=== PATIENT | male | born 1985 | race Caucasian/White ===

== ENCOUNTER 2022-05-02 03:45 | Inpatient (IN) | payer BC, SELFPAY ==
[2022-05-02] MEDS ORDERED: Cefepime 2 GM VIAL ONE (04:29)
[2022-05-02] MEDS ORDERED: VANCOMYCIN 2 GRAM/500 ML BAG 2 GM in Premix Bag 1 BAG IVPB SCH (04:30)
[2022-05-02 04:55] LABS: Hemoglobin 14.5 g/dL (14.0-18.0); Mean Corpuscular HGB CONC 34.1 g/dL (32.0-36.0); Mean Corpuscular Hemoglobin 30.5 pg (27.0-31.0); Mean Corpuscular Volume 89.4 fl (78.0-98.0); Mean Platelet Volume 8.3 fL (7.4-10.4); Platelet Count 370 10x3/uL (130-400); RBC Distribution Width 12.4 % (11.5-14.5); Red Blood Cell (RBC) Count 4.77 mill/uL (4.70-6.10); White Blood Cell (WBC) Count 20.6 10x3/uL (4.8-10.8)
[2022-05-02 05:12] LABS: ALT (SGPT) 10 U/L (8-55); AST (SGOT) 10 U/L (5-34); Alkaline Phosphatase 135 U/L (40-110); Anion Gap 21 mmol/L (10-20); BUN (Urea Nitrogen) 11 mg/dL (8.9-20.6); Bilirubin, Total 0.9 mg/dL (0.2-1.2); Calc. Creatinine Clearance 0 mL/min (70-130); Carbon Dioxide 10 mmol/L (22-29); Chloride 98 mmol/L (98-107); Estimated GFR 111; Globulin 4.1 g/dL (2.4-3.5); Potassium 5.1 mmol/L (3.5-5.1); Protein, Total 7.1 g/dL (6.0-8.3); Sodium 124 mmol/L (136-145)
[2022-05-02] MEDS ORDERED: Boostrix 0.5 ML (Tdap) VIAL (>/=7 yrs of age) ONE (05:15)
[2022-05-02 05:18] LABS: Glucose 405 mg/dL (70-105)
[2022-05-02 05:19] LABS: Band 10 % (5-11); Lymphocytes 4 % (21-51); MDiff Complete? YES; Monocytes 6 % (0-10); Neutrophil 79 % (42-75); Reactive Lymphocytes 1 % (0-10)
[2022-05-02 05:40] LABS: SARS-CoV-2 NAA Rapid Test Not Detected (NotDetected)
[2022-05-02 05:55] LABS: Base Excess -16.5 mEq/L (-2.0 to +3.0); Calcium, Ionized (venous) 1.16 mmol/L (1.16-1.32); Chloride (VBG) 100 mmol/L (98-106); Potassium (VBG) 4.67 mmol/L (3.70-5.30); Sodium 128.2 mmol/L (133-146); pH (venous) 7.26 (7.32-7.43)
[2022-05-02 05:56] LABS: Actual Bicarbonate (HCO3v) 8 mEq/L (22-28)
[2022-05-02] MEDS ORDERED: INSULIN REGULAR IN 0.9 % NACL 100 UNIT/100 ML BAG ONE (06:00)
[2022-05-02 06:20] LABS: Magnesium 1.6 mg/dL (1.6-2.6); Phosphorus 1.6 mg/dL (2.3-4.7)
[2022-05-02] MEDS ORDERED: Acetaminophen 325 MG TAB PO PRN (07:36)
[2022-05-02] MEDS ORDERED: HYDROcodone/Acetaminophen 5/325 mg Tablet PO PRN (07:36)
[2022-05-02] MEDS ORDERED: Ondansetron PF 4 MG/2 ML Vial IVP PRN ×2 (07:36→17:47)
[2022-05-02] MEDS ORDERED: Dextrose 50% Abboject 50 ML SYRINGE SLOW IVP PRN ×2 (07:37→07:38)
[2022-05-02] MEDS ORDERED: Dextrose 5% in Water 1,000 ML IV PRN (07:37)
[2022-05-02] MEDS ORDERED: Electrolyte Replacement Protocol 1 EACH IVPB SCH (07:38)
[2022-05-02] MEDS ORDERED: Dextrose 5 %-0.45 % NaCl 1,000 ML IV PRN (07:38)
[2022-05-02] MEDS ORDERED: NS 0.9% w/ 20 MEQ KCL 1,000 ML IV PRN ×2 (07:38)
[2022-05-02] MEDS ORDERED: Sodium Chloride 0.9% 1,000 ML IV PRN ×4 (07:38)
[2022-05-02 08:58] LABS: Anion Gap 18 mmol/L (10-20); BUN (Urea Nitrogen) 12 mg/dL (8.9-20.6); Calc. Creatinine Clearance 0 mL/min (70-130); Calcium 8.9 mg/dL (7.8-10.44); Chloride 103 mmol/L (98-107); Estimated GFR 114; Glucose 314 mg/dL (70-105); Sodium 126 mmol/L (136-145)
[2022-05-02] MEDS ORDERED: Magnesium 2 GM/50 ML(in water) 2 GM in Premix Bag 1 BAG IVPB SCH (09:00)
[2022-05-02 09:08] LABS: Carbon Dioxide 9 mmol/L (22-29)
[2022-05-02] MEDS: Vancomycin 1 GM in Premix Bag 1 BAG IVPB SCH ×2 (10:13→23:10)
[2022-05-02] MEDS: PHOS-NAK 1 PKT PACK PO SCH ×2 (10:20→13:13)
[2022-05-02] MEDS: D5 1/2 NS w/20 mEq KCL 1,000 ML IV PRN ×4 (10:21→23:10)
[2022-05-02 12:08] LABS: Anion Gap 15 mmol/L (10-20); BUN (Urea Nitrogen) 14 mg/dL (8.9-20.6); Calc. Creatinine Clearance 223 mL/min (70-130); Calcium 9.1 mg/dL (7.8-10.44); Carbon Dioxide 12 mmol/L (22-29); Chloride 105 mmol/L (98-107); Estimated GFR 116; Glucose 186 mg/dL (70-105); Potassium 4.1 mmol/L (3.5-5.1); Sodium 128 mmol/L (136-145)
[2022-05-02] MEDS: HUMULIN R 100 UNITS in Sodium Chloride 0.9% 100 ML IVPB SCH ×2 (14:25→23:48)
[2022-05-02] MEDS ORDERED: Famotidine/PF 20 mg/2ml Vial ONE (15:01)
[2022-05-02] MEDS ORDERED: fentaNYL PF 100 MCG/2 ML SYRINGE ONE ×2 (15:01→16:10)
[2022-05-02] MEDS ORDERED: PROPOFOL 200 MG/20 ML VIAL ONE (15:36)
[2022-05-02] MEDS ORDERED: Rocuronium Bromide 10 MG/ML (10ML VIAL) ONE (15:36)
[2022-05-02] MEDS ORDERED: NEOSTIGMINE 3 MG/3 ML SYR 3 MG/3 ML SYRINGE ONE (15:36)
[2022-05-02] MEDS ORDERED: Lidocaine 1% PF 5 ML VIAL ONE (15:36)
[2022-05-02] MEDS ORDERED: Ondansetron PF 4 MG/2 ML Vial ONE (15:36)
[2022-05-02] MEDS ORDERED: Succinylcholine Chloride 100 MG/5 ML SYRINGE FS ONE (15:36)
[2022-05-02] MEDS ORDERED: Glycopyrrolate 0.2 MG/ML 5 ML SYRINGE ONE (15:36)
[2022-05-02] MEDS ORDERED: HYDROmorphone 2 MG/ML VIAL ONE (16:10)
[2022-05-02] MEDS ORDERED: HYDROmorphone 2 MG/ML VIAL SLOW IVP PRN (16:36)
[2022-05-02] MEDS ORDERED: Meperidine HCl/PF 25 MG/ML VIAL SLOW IVP PRN (16:36)
[2022-05-02] MEDS ORDERED: Promethazine HCl 25 MG/ML VIAL IM PRN ×2 (16:36→17:47)
[2022-05-02] MEDS ORDERED: Ketorolac Tromethamine 30 MG/ML VIAL IVP PRN (16:57)
[2022-05-02] MEDS ORDERED: Ketorolac Tromethamine 30 MG/ML VIAL IVP SCH (17:00)
[2022-05-02] MEDS ORDERED: FENTANYL 500 MCG/10 ML VIAL 2,000 MCG in Sodium Chloride 0.9% 60 ML IV PRN (17:47)
[2022-05-02] MEDS ORDERED: Naloxone HCl 0.4 mg/ml Vial IV PRN (17:47)
[2022-05-02] MEDS ORDERED: diphenhydrAMINE 25 MG CAP PO PRN (17:47)
[2022-05-02] MEDS ORDERED: diphenhydrAMINE 50 MG/ML VIAL IVP PRN (17:47)
[2022-05-02] MEDS ORDERED: Zolpidem Tartrate 5 MG TAB PO PRN (17:47)
[2022-05-02] MEDS ORDERED: diphenhydrAMINE 50 MG/ML VIAL IM PRN (17:47)
[2022-05-02] MEDS ORDERED: Fentanyl CADD 100 ML IVPB PRN (17:51)
[2022-05-02] MEDS ORDERED: Communication Order-Pharmacy FS SCH (18:00)
[2022-05-02 20:42] LABS: Anion Gap 10 mmol/L (10-20); BUN (Urea Nitrogen) 14 mg/dL (8.9-20.6); Calc. Creatinine Clearance 264 mL/min (70-130); Calcium 8.2 mg/dL (7.8-10.44); Carbon Dioxide 14 mmol/L (22-29); Chloride 108 mmol/L (98-107); Estimated GFR 122; Glucose 175 mg/dL (70-105); Potassium 4.1 mmol/L (3.5-5.1); Sodium 128 mmol/L (136-145)
[2022-05-02] MEDS: Gabapentin 300 MG CAP PO SCH (20:47)
[2022-05-02] MEDS ORDERED: Cefepime 1 GM in Sodium Chloride 0.9% 100 ML IVPB SCH (21:00)
[2022-05-03] MEDS: D5 1/2 NS w/20 mEq KCL 1,000 ML IV PRN ×2 (02:46→06:30)
[2022-05-03 04:02] LABS: #Basophils 0.1 thou/uL (0.0-0.2); #Eosinphils 0.1 thou/uL (0.0-0.7); #Lymphocytes 1.1 thou/uL (1.20-3.40); #Neutrophils 11.5 thou/uL (1.40-6.50); %Basophils 0.6 % (0.0-1.0); %Eosinophils 0.4 % (0.0-10.0); %Lymphocytes 7.8 % (21.0-51.0); %Monocytes 7.6 % (0.0-10.0); %Neutrophils 83.6 % (42.0-75.0); Mean Corpuscular HGB CONC 32.7 g/dL (32.0-36.0); Mean Corpuscular Hemoglobin 29.4 pg (27.0-31.0); Mean Corpuscular Volume 89.9 fl (78.0-98.0); Mean Platelet Volume 8.3 fL (7.4-10.4); Platelet Count 284 10x3/uL (130-400); RBC Distribution Width 12.5 % (11.5-14.5); Red Blood Cell (RBC) Count 3.75 mill/uL (4.70-6.10); White Blood Cell (WBC) Count 13.7 10x3/uL (4.8-10.8)
[2022-05-03 04:04] LABS: Hemoglobin A1c 11.5 % (4.0-6.0)
[2022-05-03 04:24] LABS: ALT (SGPT) 10 U/L (8-55); AST (SGOT) 14 U/L (5-34); Albumin 2.1 g/dL (3.5-5.0); Alkaline Phosphatase 118 U/L (40-110); Anion Gap 10 mmol/L (10-20); BUN (Urea Nitrogen) 15 mg/dL (8.9-20.6); Bilirubin, Total 0.6 mg/dL (0.2-1.2); Calc. Creatinine Clearance 264 mL/min (70-130); Calcium 8.5 mg/dL (7.8-10.44); Carbon Dioxide 14 mmol/L (22-29); Chloride 107 mmol/L (98-107); Estimated GFR 122; Glucose 161 mg/dL (70-105); Potassium 4.1 mmol/L (3.5-5.1); Protein, Total 6.1 g/dL (6.0-8.3); Sodium 127 mmol/L (136-145)
[2022-05-03] MEDS: Cefepime 2 GM in Sodium Chloride 0.9% 100 ML IVPB SCH ×2 (08:27→20:11)
[2022-05-03] MEDS: Gabapentin 300 MG CAP PO SCH ×3 (08:29→20:10)
[2022-05-03] MEDS: Polyethylene Glycol 3350 17 GM Packet PO SCH (08:30)
[2022-05-03] MEDS: Vancomycin 1 GM in Premix Bag 1 BAG IVPB SCH ×2 (08:30→20:11)
[2022-05-03] MEDS: HUMULIN R 100 UNITS in Sodium Chloride 0.9% 100 ML IVPB SCH (08:31)
[2022-05-03] MEDS ORDERED: Insulin Glargine 30 UNITS/0.3 ML VIAL SC SCH (10:30)
[2022-05-03] MEDS ORDERED: Fentanyl 100 MCG/2 ML VIAL SLOW IVP PRN (10:48)
[2022-05-03] MEDS ORDERED: oxyCODONE 5 MG TAB PO PRN (10:48)
[2022-05-03] MEDS: Ketorolac Tromethamine 30 MG/ML VIAL IVP SCH ×2 (11:52→18:21)
[2022-05-03] MEDS: Acetaminophen 325 MG TAB PO SCH ×3 (11:53→20:10)
[2022-05-03] MEDS: HumaLOG 300 UNITS/3 ML VIAL SC PRN ×3 (13:15→20:11)
[2022-05-03] MEDS ORDERED: Calcium Carbonate 500 MG ChewTAB PO PRN (14:25)
[2022-05-04] MEDS: Acetaminophen 325 MG TAB PO SCH ×6 (00:37→21:36)
[2022-05-04] MEDS: Ketorolac Tromethamine 30 MG/ML VIAL IVP SCH ×5 (00:38→22:00)
[2022-05-04 04:05] LABS: Anion Gap 10 mmol/L (10-20); BUN (Urea Nitrogen) 27 mg/dL (8.9-20.6); Calc. Creatinine Clearance 190 mL/min (70-130); Carbon Dioxide 16 mmol/L (22-29); Chloride 105 mmol/L (98-107); Estimated GFR 101; Glucose 319 mg/dL (70-105); Potassium 4.3 mmol/L (3.5-5.1); Sodium 127 mmol/L (136-145)
[2022-05-04] MEDS: HumaLOG 300 UNITS/3 ML VIAL SC PRN ×5 (05:58→21:40)
[2022-05-04] MEDS: Cefepime 2 GM in Sodium Chloride 0.9% 100 ML IVPB SCH ×2 (07:49→21:34)
[2022-05-04] MEDS: Gabapentin 300 MG CAP PO SCH ×3 (07:50→21:37)
[2022-05-04] MEDS: Vancomycin 1 GM in Premix Bag 1 BAG IVPB SCH ×2 (07:51→21:35)
[2022-05-04] MEDS: Polyethylene Glycol 3350 17 GM Packet PO SCH (07:51)
[2022-05-04] MEDS ORDERED: Insulin Glargine 30 UNITS/0.3 ML VIAL SC SCH (09:00)
[2022-05-05] MEDS: Acetaminophen 325 MG TAB PO SCH ×6 (02:10→21:43)
[2022-05-05] MEDS: Ketorolac Tromethamine 30 MG/ML VIAL IVP SCH ×4 (04:58→22:00)
[2022-05-05] MEDS: HumaLOG 300 UNITS/3 ML VIAL SC PRN ×3 (05:22→21:49)
[2022-05-05 06:02] LABS: Anion Gap 9 mmol/L (10-20); BUN (Urea Nitrogen) 32 mg/dL (8.9-20.6); Calc. Creatinine Clearance 198 mL/min (70-130); Calcium 8.4 mg/dL (7.8-10.44); Carbon Dioxide 19 mmol/L (22-29); Chloride 107 mmol/L (98-107); Estimated GFR 106; Glucose 341 mg/dL (70-105); Potassium 4.7 mmol/L (3.5-5.1); Sodium 130 mmol/L (136-145)
[2022-05-05] MEDS ORDERED: Insulin Glargine 30 UNITS/0.3 ML VIAL SC SCH (09:00)
[2022-05-05] MEDS: Vancomycin 1 GM in Premix Bag 1 BAG IVPB SCH (10:37)
[2022-05-05] MEDS: Gabapentin 300 MG CAP PO SCH ×3 (10:39→21:44)
[2022-05-05] MEDS: Polyethylene Glycol 3350 17 GM Packet PO SCH (10:40)
[2022-05-05] MEDS: Cefepime 2 GM in Sodium Chloride 0.9% 100 ML IVPB SCH (11:06)
[2022-05-05] MEDS: cefTRIAXone\\ROCEPHIN 2 GM in Sodium Chloride 0.9% 100 ML IVPB SCH (21:45)
[2022-05-06] MEDS: Acetaminophen 325 MG TAB PO SCH ×6 (00:48→20:06)
[2022-05-06] MEDS: Ketorolac Tromethamine 30 MG/ML VIAL IVP SCH (04:55)
[2022-05-06] MEDS: HumaLOG 300 UNITS/3 ML VIAL SC PRN ×4 (05:10→20:08)
[2022-05-06 05:38] LABS: #Eosinphils 0.2 thou/uL (0.0-0.7); #Lymphocytes 1.4 thou/uL (1.20-3.40); #Monocytes 0.6 thou/uL (0.11-0.59); #Neutrophils 6.5 thou/uL (1.40-6.50); %Basophils 0.2 % (0.0-1.0); %Eosinophils 1.9 % (0.0-10.0); %Lymphocytes 16.1 % (21.0-51.0); %Monocytes 7.1 % (0.0-10.0); %Neutrophils 74.8 % (42.0-75.0); Hemoglobin 9.2 g/dL (14.0-18.0); Mean Corpuscular HGB CONC 32.4 g/dL (32.0-36.0); Mean Corpuscular Hemoglobin 29.4 pg (27.0-31.0); Mean Corpuscular Volume 90.6 fl (78.0-98.0); Mean Platelet Volume 8.3 fL (7.4-10.4); Platelet Count 310 10x3/uL (130-400); RBC Distribution Width 12.7 % (11.5-14.5); Red Blood Cell (RBC) Count 3.14 mill/uL (4.70-6.10); White Blood Cell (WBC) Count 8.7 10x3/uL (4.8-10.8)
[2022-05-06 05:42] LABS: Anion Gap 11 mmol/L (10-20); BUN (Urea Nitrogen) 29 mg/dL (8.9-20.6); Calc. Creatinine Clearance 219 mL/min (70-130); Calcium 8.5 mg/dL (7.8-10.44); Carbon Dioxide 18 mmol/L (22-29); Chloride 108 mmol/L (98-107); Estimated GFR 115; Glucose 279 mg/dL (70-105); Potassium 4.6 mmol/L (3.5-5.1); Sodium 132 mmol/L (136-145)
[2022-05-06] MEDS: Insulin Glargine 30 UNITS/0.3 ML VIAL SC SCH (09:17)
[2022-05-06] MEDS: Gabapentin 300 MG CAP PO SCH ×3 (09:19→20:06)
[2022-05-06] MEDS: Polyethylene Glycol 3350 17 GM Packet PO SCH (09:20)
[2022-05-06] MEDS: cefTRIAXone\\ROCEPHIN 2 GM in Sodium Chloride 0.9% 100 ML IVPB SCH (20:06)
[2022-05-07] MEDS: Acetaminophen 325 MG TAB PO SCH ×8 (00:06→23:54)
[2022-05-07 05:37] LABS: Anion Gap 6 mmol/L (10-20); BUN (Urea Nitrogen) 28 mg/dL (8.9-20.6); Calc. Creatinine Clearance 242 mL/min (70-130); Calcium 8.8 mg/dL (7.8-10.44); Carbon Dioxide 23 mmol/L (22-29); Chloride 110 mmol/L (98-107); Estimated GFR 119; Glucose 220 mg/dL (70-105); Potassium 4.9 mmol/L (3.5-5.1); Sodium 134 mmol/L (136-145)
[2022-05-07] MEDS ORDERED: fentaNYL PF 100 MCG/2 ML SYRINGE ONE (08:40)
[2022-05-07] MEDS: Gabapentin 300 MG CAP PO SCH ×3 (09:57→20:07)
[2022-05-07] MEDS: Insulin Glargine 30 UNITS/0.3 ML VIAL SC SCH (09:57)
[2022-05-07] MEDS: Polyethylene Glycol 3350 17 GM Packet PO SCH (09:57)
[2022-05-07] MEDS ORDERED: PROPOFOL 200 MG/20 ML VIAL ONE (10:59)
[2022-05-07] MEDS ORDERED: Ondansetron PF 4 MG/2 ML Vial ONE (10:59)
[2022-05-07] MEDS ORDERED: Glycopyrrolate 0.2 MG/ML 5 ML SYRINGE ONE (10:59)
[2022-05-07] MEDS ORDERED: NEOSTIGMINE 3 MG/3 ML SYR 3 MG/3 ML SYRINGE ONE (10:59)
[2022-05-07] MEDS ORDERED: Rocuronium Bromide 10 MG/ML (10ML VIAL) ONE (10:59)
[2022-05-07] MEDS ORDERED: Promethazine HCl 25 MG/ML VIAL IM PRN ×2 (12:38→13:52)
[2022-05-07] MEDS ORDERED: Ondansetron HCl/PF 4 MG/2 ML Vial IVP PRN (12:38)
[2022-05-07] MEDS ORDERED: Fentanyl 100 MCG/2 ML VIAL ONE ×2 (12:45→13:20)
[2022-05-07] MEDS ORDERED: diphenhydrAMINE 50 MG/ML VIAL IVP PRN (13:52)
[2022-05-07] MEDS ORDERED: diphenhydrAMINE 50 MG/ML VIAL IM PRN (13:52)
[2022-05-07] MEDS ORDERED: Zolpidem Tartrate 5 MG TAB PO PRN (13:52)
[2022-05-07] MEDS ORDERED: diphenhydrAMINE 25 MG CAP PO PRN (13:52)
[2022-05-07] MEDS ORDERED: Naloxone HCl 0.4 mg/ml Vial IV PRN (13:52)
[2022-05-07] MEDS ORDERED: Ondansetron PF 4 MG/2 ML Vial IVP PRN (13:52)
[2022-05-07] MEDS ORDERED: Communication Order-Pharmacy FS PRN (14:00)
[2022-05-07] MEDS: Sodium Chloride 0.9% 1,000 ML IV SCH (15:13)
[2022-05-07] MEDS: HumaLOG 300 UNITS/3 ML VIAL SC PRN (16:04)
[2022-05-07] MEDS: cefTRIAXone\\ROCEPHIN 2 GM in Sodium Chloride 0.9% 100 ML IVPB SCH (20:07)
[2022-05-08] MEDS: Acetaminophen 325 MG TAB PO SCH ×5 (04:01→22:07)
[2022-05-08 05:06] LABS: #Eosinphils 0.1 thou/uL (0.0-0.7); #Lymphocytes 1.3 thou/uL (1.20-3.40); #Monocytes 0.8 thou/uL (0.11-0.59); #Neutrophils 6.3 thou/uL (1.40-6.50); %Basophils 0.2 % (0.0-1.0); %Eosinophils 1.7 % (0.0-10.0); %Lymphocytes 15.2 % (21.0-51.0); %Monocytes 8.8 % (0.0-10.0); %Neutrophils 74.1 % (42.0-75.0); Hemoglobin 8.5 g/dL (14.0-18.0); Mean Corpuscular HGB CONC 34.3 g/dL (32.0-36.0); Mean Corpuscular Volume 90.3 fl (78.0-98.0); Mean Platelet Volume 7.5 fL (7.4-10.4); Platelet Count 384 10x3/uL (130-400); RBC Distribution Width 12.7 % (11.5-14.5); Red Blood Cell (RBC) Count 2.75 mill/uL (4.70-6.10); White Blood Cell (WBC) Count 8.5 10x3/uL (4.8-10.8)
[2022-05-08 05:23] LABS: Anion Gap 9 mmol/L (10-20); BUN (Urea Nitrogen) 19 mg/dL (8.9-20.6); Calc. Creatinine Clearance 270 mL/min (70-130); Calcium 8.5 mg/dL (7.8-10.44); Carbon Dioxide 28 mmol/L (22-29); Chloride 100 mmol/L (98-107); Estimated GFR 122; Glucose 219 mg/dL (70-105); Potassium 4.8 mmol/L (3.5-5.1); Sodium 132 mmol/L (136-145)
[2022-05-08] MEDS: Gabapentin 300 MG CAP PO SCH ×3 (09:03→22:08)
[2022-05-08] MEDS: Polyethylene Glycol 3350 17 GM Packet PO SCH (09:04)
[2022-05-08] MEDS: Insulin Glargine 30 UNITS/0.3 ML VIAL SC SCH (09:04)
[2022-05-08] MEDS: HumaLOG 300 UNITS/3 ML VIAL SC PRN (12:34)
[2022-05-08 15:39] VITALS: BMI 39.0
[2022-05-08] MEDS: FENTANYL 500 MCG/10 ML VIAL 2,000 MCG in Sodium Chloride 0.9% 60 ML IV PRN (16:17)
[2022-05-08] MEDS: Sodium Chloride 0.9% 1,000 ML IV SCH (19:15)
[2022-05-08] MEDS: cefTRIAXone\\ROCEPHIN 2 GM in Sodium Chloride 0.9% 100 ML IVPB SCH (22:09)
[2022-05-09] MEDS: Acetaminophen 325 MG TAB PO SCH ×4 (01:37→13:09)
[2022-05-09 05:04] LABS: #Eosinphils 0.2 thou/uL (0.0-0.7); #Lymphocytes 1.6 thou/uL (1.20-3.40); #Monocytes 0.6 thou/uL (0.11-0.59); #Neutrophils 3.4 thou/uL (1.40-6.50); %Basophils 0.3 % (0.0-1.0); %Eosinophils 2.6 % (0.0-10.0); %Lymphocytes 26.9 % (21.0-51.0); %Monocytes 10.9 % (0.0-10.0); %Neutrophils 59.3 % (42.0-75.0); Mean Corpuscular HGB CONC 35.4 g/dL (32.0-36.0); Mean Corpuscular Hemoglobin 32.3 pg (27.0-31.0); Mean Corpuscular Volume 91.2 fl (78.0-98.0); Mean Platelet Volume 7.3 fL (7.4-10.4); Platelet Count 356 10x3/uL (130-400); RBC Distribution Width 12.3 % (11.5-14.5); Red Blood Cell (RBC) Count 2.49 mill/uL (4.70-6.10); White Blood Cell (WBC) Count 5.8 10x3/uL (4.8-10.8)
[2022-05-09 05:25] LABS: Anion Gap 6 mmol/L (10-20); BUN (Urea Nitrogen) 18 mg/dL (8.9-20.6); Calc. Creatinine Clearance 295 mL/min (70-130); Calcium 8.2 mg/dL (7.8-10.44); Carbon Dioxide 32 mmol/L (22-29); Chloride 98 mmol/L (98-107); Estimated GFR 126; Glucose 172 mg/dL (70-105); Potassium 4.4 mmol/L (3.5-5.1); Sodium 132 mmol/L (136-145)
[2022-05-09] MEDS ORDERED: Sodium Chloride 0.9% 1,000 ML IV SCH (08:00)
[2022-05-09] MEDS: Insulin Glargine 30 UNITS/0.3 ML VIAL SC SCH (09:48)
[2022-05-09] MEDS: Gabapentin 300 MG CAP PO SCH ×3 (09:49→20:12)
[2022-05-09] MEDS: Polyethylene Glycol 3350 17 GM Packet PO SCH (09:50)
[2022-05-09] MEDS ORDERED: fentaNYL PF 100 MCG/2 ML SYRINGE ONE ×3 (12:06→13:52)
[2022-05-09] MEDS ORDERED: ePHEDrine 50 MG/ML VIAL ONE (12:35)
[2022-05-09] MEDS ORDERED: Ondansetron PF 4 MG/2 ML Vial ONE (12:35)
[2022-05-09] MEDS ORDERED: PROPOFOL 200 MG/20 ML VIAL ONE (12:35)
[2022-05-09] MEDS ORDERED: Ondansetron HCl/PF 4 MG/2 ML Vial IVP PRN (14:03)
[2022-05-09] MEDS ORDERED: Promethazine HCl 25 MG/ML VIAL IM PRN (14:03)
[2022-05-09] MEDS ORDERED: Fentanyl 100 MCG/2 ML VIAL ONE ×2 (14:20→14:49)
[2022-05-09] MEDS: FENTANYL 500 MCG/10 ML VIAL 2,000 MCG in Sodium Chloride 0.9% 60 ML IV PRN (15:57)
[2022-05-09] MEDS: HumaLOG 300 UNITS/3 ML VIAL SC PRN (17:17)
[2022-05-09] MEDS: cefTRIAXone\\ROCEPHIN 2 GM in Sodium Chloride 0.9% 100 ML IVPB SCH (20:12)
[2022-05-09 21:23] LABS: Hemoglobin 7.5 g/dL (14.0-18.0)
[2022-05-10 05:59] LABS: #Eosinphils 0.2 thou/uL (0.0-0.7); #Lymphocytes 1.6 thou/uL (1.20-3.40); #Monocytes 0.6 thou/uL (0.11-0.59); #Neutrophils 4.6 thou/uL (1.40-6.50); %Basophils 0.4 % (0.0-1.0); %Eosinophils 2.1 % (0.0-10.0); %Lymphocytes 23.2 % (21.0-51.0); %Monocytes 8.2 % (0.0-10.0); Hemoglobin 7.2 g/dL (14.0-18.0); Mean Corpuscular HGB CONC 32.4 g/dL (32.0-36.0); Mean Corpuscular Hemoglobin 29.7 pg (27.0-31.0); Mean Corpuscular Volume 91.8 fl (78.0-98.0); Mean Platelet Volume 7.1 fL (7.4-10.4); Platelet Count 427 10x3/uL (130-400); RBC Distribution Width 12.3 % (11.5-14.5); Red Blood Cell (RBC) Count 2.44 mill/uL (4.70-6.10)
[2022-05-10 06:17] LABS: Anion Gap 6 mmol/L (10-20); BUN (Urea Nitrogen) 16 mg/dL (8.9-20.6); Calc. Creatinine Clearance 282 mL/min (70-130); Calcium 8.1 mg/dL (7.8-10.44); Carbon Dioxide 31 mmol/L (22-29); Chloride 98 mmol/L (98-107); Estimated GFR 124; Glucose 152 mg/dL (70-105); Potassium 4.4 mmol/L (3.5-5.1); Sodium 131 mmol/L (136-145)
[2022-05-10] MEDS: Gabapentin 300 MG CAP PO SCH ×2 (10:19→14:39)
[2022-05-10] MEDS: Insulin Glargine 30 UNITS/0.3 ML VIAL SC SCH (10:19)
[2022-05-10] MEDS: Polyethylene Glycol 3350 17 GM Packet PO SCH (10:20)
[2022-05-10] MEDS: HumaLOG 300 UNITS/3 ML VIAL SC PRN (10:37)
[2022-05-10] MEDS ORDERED: HYDROcodone/Acetaminophen 10/325 mg Tablet PO PRN ×2 (13:17→13:18)
[2022-05-10] MEDS ORDERED: traMADol HCl 50 MG TAB PO PRN ×2 (13:18→13:19)
[2022-05-10 14:28] LABS: Hemoglobin 7.2 g/dL (14.0-18.0)
[2022-05-10 16:12] VITALS: BP 118/77; TEMP 98.6
[2022-05-12] MEDS ORDERED: AMOXicillin 250 MG CAP PO SCH (15:00)
== END 2022-05-10 18:00 | DRG 853 ==
LOC: ERS 03:45 → IMCU/EMU 07:47 → SURG B 05-04 12:16
PROVIDERS: ADMIT Student in an Organized Health Care Education/Training Program; ATTEND Internal Medicine
PROC: 0Y6P0Z1 Detachment at Right 1st Toe, High, Open Approach (ICD-10-PCS; principal; 2022-05-02)
PROC: 0Y6J0Z3 Detachment at Left Lower Leg, Low, Open Approach (ICD-10-PCS; 2022-05-02)
PROC: 0QCQ0ZZ Extirpation of Matter from Right Toe Phalanx, Open Approach (ICD-10-PCS; 2022-05-02)
PROC: 3E03329 Introduction of Other Anti-infective into Peripheral Vein, Percutaneous Approach (ICD-10-PCS; 2022-05-02)
PROC: 0KBV0ZZ Excision of Right Foot Muscle, Open Approach (ICD-10-PCS; 2022-05-02)
PROC: 0LQP0ZZ Repair Left Lower Leg Tendon, Open Approach (ICD-10-PCS; 2022-05-02)
PROC: 0Y6J0Z1 Detachment at Left Lower Leg, High, Open Approach (ICD-10-PCS; 2022-05-07)
PROC: 0HQLXZZ Repair Left Lower Leg Skin, External Approach (ICD-10-PCS; 2022-05-09)
DX: A40.9 Streptococcal sepsis, unspecified (principal); E11.10 Type 2 diabetes mellitus with ketoacidosis without coma; E11.52 Type 2 diabetes mellitus with diabetic peripheral angiopathy with gangrene; M86.171 Other acute osteomyelitis, right ankle and foot; L03.116 Cellulitis of left lower limb; L02.416 Cutaneous abscess of left lower limb; I10 Essential (primary) hypertension; E11.69 Type 2 diabetes mellitus with other specified complication; E11.621 Type 2 diabetes mellitus with foot ulcer; L97.529 Non-pressure chronic ulcer of other part of left foot with unspecified severity; L97.519 Non-pressure chronic ulcer of other part of right foot with unspecified severity; R33.9 Retention of urine, unspecified; L84 Corns and callosities; E66.01 Morbid (severe) obesity due to excess calories; Z68.39 Body mass index [BMI] 39.0-39.9, adult; Z79.899 Other long term (current) drug therapy; Z91.14 Patient's other noncompliance with medication regimen; Z79.4 Long term (current) use of insulin; Z83.3 Family history of diabetes mellitus; Z98.890 Other specified postprocedural states; Z20.822 Contact with and (suspected) exposure to COVID-19; S86.012A Strain of left Achilles tendon, initial encounter
CPT/HCPCS: 36415; 36416; 71045; 80048; 80053; 82010; 82805; 83036; 83605; 83735; 83880; 84100; 84484; 85025; 86140; 86850; 86900; 86901; 87040; 87070; 87077; 87186; 87205; 87811; 88305; 88307; 88311; 90471; 90715; 93005; 96365; 96367; 96374; 96375; 97139; C1713; J0692; J0696; J1170; J1650; J1815; J1885; J2405; J2704; J3010; J3370; J3370-JW; J3372; J3475; J3480; J3490; S0028

== ENCOUNTER 2022-11-20 11:02 | Outpatient (CLI) | payer BC | END 2022-11-20 11:03 | disposition home or self-care (01) | PROVIDERS: ATTEND Family Medicine | DX: Z47.81 Encounter for orthopedic aftercare following surgical amputation (principal); Z89.512 Acquired absence of left leg below knee ==

== ENCOUNTER 2023-04-30 13:06 | Emergency (ER) | payer BC ==
[2023-04-30 14:18] LABS: #Basophils 0.1 thou/uL (0.0-0.2); #Eosinphils 0.3 thou/uL (0.0-0.7); #Monocytes 0.4 thou/uL (0.11-0.59); #Neutrophils 6.3 thou/uL (1.40-6.50); %Basophils 0.6 % (0.0-1.0); %Eosinophils 3.8 % (0.0-10.0); %Lymphocytes 19.9 % (21.0-51.0); %Monocytes 4.5 % (0.0-10.0); %Neutrophils 70.9 % (42.0-75.0); Hematocrit 41.2 % (42.0-52.0); Hemoglobin 14.1 g/dL (14.0-18.0); Mean Corpuscular HGB CONC 34.2 g/dL (32.0-36.0); Mean Corpuscular Hemoglobin 28.3 pg (27.0-31.0); Mean Corpuscular Volume 82.7 fl (78.0-98.0); Mean Platelet Volume 10.5 fL (7.4-10.4); Platelet Count 337 10x3/uL (130-400); RBC Distribution Width 11.8 % (11.5-14.5); Red Blood Cell (RBC) Count 4.98 mill/uL (4.70-6.10); White Blood Cell (WBC) Count 8.9 10x3/uL (4.8-10.8)
[2023-04-30 14:43] LABS: CRP (Inflammatory) 2.81 mg/dL (= or < 0.5); Magnesium 1.6 mg/dL (1.6-2.6)
[2023-04-30 14:44] LABS: ALT (SGPT) 16 U/L (8-55); AST (SGOT) 11 U/L (5-34); Albumin 3.8 g/dL (3.5-5.0); Alkaline Phosphatase 104 U/L (40-110); Anion Gap 12 mmol/L (10-20); BUN (Urea Nitrogen) 25 mg/dL (8.9-20.6); Bilirubin, Total 0.8 mg/dL (0.2-1.2); Calc. Creatinine Clearance 0 mL/min (70-130); Calcium 9.5 mg/dL (7.8-10.44); Carbon Dioxide 25 mmol/L (22-29); Chloride 98 mmol/L (98-107); Estimated GFR 114; Globulin 3.8 g/dL (2.4-3.5); Glucose 392 mg/dL (70-105); Potassium 4.2 mmol/L (3.5-5.1); Protein, Total 7.6 g/dL (6.0-8.3); Sodium 131 mmol/L (136-145)
== END 2023-04-30 15:26 | disposition home or self-care (01) ==
LOC: ERS 13:06
DX: L84 Corns and callosities (principal); L97.911 Non-pressure chronic ulcer of unspecified part of right lower leg limited to breakdown of skin; E11.65 Type 2 diabetes mellitus with hyperglycemia; I10 Essential (primary) hypertension; Z87.891 Personal history of nicotine dependence; Z79.4 Long term (current) use of insulin; Z79.899 Other long term (current) drug therapy
CPT/HCPCS: 80053; 83605; 83735; 85025; 86140

== ENCOUNTER 2023-05-21 11:15 | Inpatient (IN) | payer BC ==
[~2023-05-21 11:15] MED LIST: Iopamidol-370 76% 500 ML MDV (1 ML CHARGE) ONE
[2023-05-21 12:00] LABS: Hematocrit 33.3 % (42.0-52.0); Hemoglobin 11.4 g/dL (14.0-18.0); Manual Diff?? YES; Mean Corpuscular HGB CONC 34.2 g/dL (32.0-36.0); Mean Corpuscular Hemoglobin 27.7 pg (27.0-31.0); Mean Platelet Volume 12.3 fL (7.4-10.4); Platelet Count 225 10x3/uL (130-400); RBC Distribution Width 12.3 % (11.5-14.5); Red Blood Cell (RBC) Count 4.11 mill/uL (4.70-6.10); White Blood Cell (WBC) Count 8.8 10x3/uL (4.8-10.8)
[2023-05-21 12:01] LABS: Delete Auto Diff?? YES
[2023-05-21 12:02] LABS: Actual Bicarbonate (HCO3v) 19.7 mEq/L (22-28); Base Excess -3.7 mEq/L (-2.0 to +3.0); Calcium, Ionized (venous) 1.22 mmol/L (1.16-1.32); Chloride (VBG) 90 mmol/L (98-106); Hematocrit-VBG 36 % (42.0-52.0); Hemoglobin (Hb) 12.4 g/dL (13.2-17.3); Potassium (VBG) 3.94 mmol/L (3.70-5.30); Sodium 125 mmol/L (133-146); pH (venous) 7.422 (7.32-7.43)
[2023-05-21 12:12] LABS: Phosphorus 2.7 mg/dL (2.3-4.7)
[2023-05-21 12:16] LABS: ALT (SGPT) 16 U/L (8-55); AST (SGOT) 28 U/L (5-34); Albumin 2.7 g/dL (3.5-5.0); Alkaline Phosphatase 88 U/L (40-110); Anion Gap 18 mmol/L (10-20); BUN (Urea Nitrogen) 23 mg/dL (8.9-20.6); Bilirubin, Total 1.7 mg/dL (0.2-1.2); Calc. Creatinine Clearance 0 mL/min (70-130); Calcium 9.9 mg/dL (7.8-10.44); Carbon Dioxide 20 mmol/L (22-29); Chloride 90 mmol/L (98-107); Estimated GFR 114; Globulin 4.3 g/dL (2.4-3.5); Glucose 325 mg/dL (70-105); Magnesium 1.5 mg/dL (1.6-2.6); Potassium 3.9 mmol/L (3.5-5.1); Sodium 124 mmol/L (136-145)
[2023-05-21] MEDS ORDERED: Sodium Chloride 0.9% 100 ML ONE (12:24)
[2023-05-21] MEDS ORDERED: Piperacillin/Tazobactam 4.5 GM VIAL ONE (12:24)
[2023-05-21] MEDS ORDERED: Vancomycin (BATCH) 2 GM/500 ML BAG ONE (12:34)
[2023-05-21 12:39] LABS: CRP (Inflammatory) 36.28 mg/dL (= or < 0.5)
[2023-05-21 12:40] LABS: Band 19 % (5-11); CellaVision Operator ID LAB.KW3; Large Platelets 16.3 % (0-5); Lymphocytes 7 % (21-51); Monocytes 7 % (0-10); Neutrophil 65 % (42-75); Platelet Adequacy Comment Platelets Normal; Platelet Clumps 1.9 % (0-5); Poikilocytosis SLIGHT = 6-15 cells HPF (0-5); Polychromasia SLIGHT = 2-3 cells HPF (0-2); Reactive Lymphocytes 2 % (0-10); Total Cell Count 104
[2023-05-21] MEDS ORDERED: Vancomycin 2 GM in Sodium Chloride 0.9% 500 ML IVPB SCH (13:00)
[2023-05-21] MEDS ORDERED: VANCOMYCIN IVPB PRN (13:34)
[2023-05-21] MEDS ORDERED: Ondansetron PF 4 MG/2 ML Vial IVP PRN (13:35)
[2023-05-21] MEDS ORDERED: Glucagon 1 MG/ML KIT IM PRN (13:35)
[2023-05-21] MEDS ORDERED: Dextrose 5% in Water 1,000 ML IV PRN (13:35)
[2023-05-21] MEDS ORDERED: Dextrose 50% Abboject 50 ML SYRINGE SLOW IVP PRN (13:35)
[2023-05-21] MEDS ORDERED: Ondansetron ODT 4 MG TAB PO PRN (13:35)
[2023-05-21] MEDS ORDERED: Acetaminophen 325 MG TAB PO PRN (13:35)
[2023-05-21] MEDS ORDERED: HYDROcodone/Acetaminophen 5/325 mg Tablet PO PRN (13:35)
[2023-05-21 13:59] LABS: Hemoglobin A1c 9.9 % (4.0-6.0)
[2023-05-21 15:53] VITALS: BMI 47.5
[2023-05-21] MEDS: Vancomycin (BATCH) 2 GM in Premix 1 BAG IVPB SCH (16:31)
[2023-05-21] MEDS: Insulin Regular 300 UNITS/3 ML VIAL SC PRN (16:59)
[2023-05-21] MEDS: Sodium Chloride 0.9% 1,000 ML IV SCH (17:12)
[2023-05-21] MEDS: Piperacillin/Tazobactam 3.375 GM in Sodium Chloride 0.9% 100 ML IVPB SCH (17:15)
[2023-05-21] MEDS ORDERED: Piperacillin/Tazobactam 4.5 GM in Sodium Chloride 0.9% 100 ML IVPB SCH (18:00)
[2023-05-21] MEDS: Magnesium 2 GM/50 ML(in water) 2 GM in Premix 1 BAG IVPB SCH ×2 (18:07→18:25)
[2023-05-21] MEDS: HYDROcodone/Acetaminophen 5/325 mg Tablet PO PRN (18:12)
[2023-05-21] MEDS: Vancomycin 1 GM in Premix 1 BAG IVPB SCH (21:30)
[2023-05-21] MEDS: Famotidine 20 MG TAB PO SCH (21:31)
[2023-05-21] MEDS: Tamsulosin HCl 0.4 MG CAP PO SCH (21:31)
[2023-05-22 03:54] LABS: Hematocrit 30.5 % (42.0-52.0); Hemoglobin 10.3 g/dL (14.0-18.0); Manual Diff?? YES; Mean Corpuscular HGB CONC 33.8 g/dL (32.0-36.0); Mean Corpuscular Hemoglobin 27.8 pg (27.0-31.0); Mean Corpuscular Volume 82.4 fl (78.0-98.0); Mean Platelet Volume 12.2 fL (7.4-10.4); Platelet Count 231 10x3/uL (130-400); RBC Distribution Width 12.3 % (11.5-14.5); White Blood Cell (WBC) Count 8.3 10x3/uL (4.8-10.8)
[2023-05-22 04:04] LABS: Delete Auto Diff?? YES
[2023-05-22 04:19] LABS: ALT (SGPT) 14 U/L (8-55); AST (SGOT) 18 U/L (5-34); Albumin 2.3 g/dL (3.5-5.0); Alkaline Phosphatase 94 U/L (40-110); Anion Gap 14 mmol/L (10-20); BUN (Urea Nitrogen) 20 mg/dL (8.9-20.6); Bilirubin, Total 1.2 mg/dL (0.2-1.2); Calc. Creatinine Clearance 292 mL/min (70-130); Calcium 9.4 mg/dL (7.8-10.44); Carbon Dioxide 23 mmol/L (22-29); Chloride 94 mmol/L (98-107); Estimated GFR 118; Glucose 322 mg/dL (70-105); Magnesium 2.2 mg/dL (1.6-2.6); Potassium 3.3 mmol/L (3.5-5.1); Protein, Total 6.3 g/dL (6.0-8.3); Sodium 128 mmol/L (136-145)
[2023-05-22 04:49] LABS: Anisocytosis SLIGHT = 6-15 cells HPF (0-5); Band 31 % (5-11); CellaVision Operator ID LAB.CLH1; Hypochromia SLIGHT = 6-15 cells HPF (0-5); Large Platelets 17.6 % (0-5); Lymphocytes 9 % (21-51); Monocytes 13 % (0-10); Neutrophil 46 % (42-75); Platelet Adequacy Comment Platelets Normal; Poikilocytosis SLIGHT = 6-15 cells HPF (0-5); Polychromasia SLIGHT = 2-3 cells HPF (0-2); Total Cell Count 102
[2023-05-22] MEDS ORDERED: PROPOFOL 20 ML ONE (06:38)
[2023-05-22] MEDS ORDERED: Fentanyl 250 MCG/5 ML VIAL ONE (06:38)
[2023-05-22] MEDS ORDERED: Rocuronium Bromide 10 MG/ML (10ML VIAL) ONE (06:38)
[2023-05-22] MEDS ORDERED: Midazolam HCl 2 mg/2 ml Vial ONE (07:20)
[2023-05-22] MEDS ORDERED: Ondansetron PF 4 MG/2 ML Vial ONE (07:49)
[2023-05-22] MEDS ORDERED: Dexmedetomidine 200 MCG/2 ML VIAL ONE (07:49)
[2023-05-22] MEDS ORDERED: Sodium Chloride 0.9% 100 ML ONE (07:50)
[2023-05-22] MEDS ORDERED: Vancomycin 1 GM VIAL ONE (08:03)
[2023-05-22] MEDS ORDERED: Albumin 5% 250 ML ONE (08:24)
[2023-05-22] MEDS: Escitalopram Oxalate 20 mg Tablet PO SCH (09:00)
[2023-05-22] MEDS ORDERED: fentaNYL PF 100 MCG/2 ML SYRINGE ONE ×2 (09:07→09:21)
[2023-05-22] MEDS ORDERED: oxyCODONE 5 MG TAB PO PRN (09:15)
[2023-05-22 09:40] LABS: Hematocrit 31.2 % (42.0-52.0); Hemoglobin 10.3 g/dL (14.0-18.0)
[2023-05-22] MEDS ORDERED: fentaNYL 50 mcg/mL 1 mL Vial ONE (09:51)
[2023-05-22] MEDS ORDERED: Ondansetron PF 4 MG/2 ML Vial IVP PRN (10:30)
[2023-05-22] MEDS ORDERED: Fentanyl CADD 100 ML IVPB SCH (10:30)
[2023-05-22] MEDS ORDERED: diphenhydrAMINE 50 MG/ML VIAL IM/IV PRN (10:30)
[2023-05-22] MEDS ORDERED: Promethazine HCl 25 MG/ML VIAL IM PRN (10:30)
[2023-05-22] MEDS ORDERED: Naloxone HCl 0.4 mg/ml Vial IV PRN (10:30)
[2023-05-22] MEDS ORDERED: diphenhydrAMINE 25 MG CAP PO PRN (10:30)
[2023-05-22] MEDS ORDERED: fentaNYL 50 mcg/mL 1 mL Vial SLOW IVP PRN ×2 (11:16)
[2023-05-22] MEDS ORDERED: Vancomycin 1 GM in Premix 1 BAG IVPB SCH (12:45)
[2023-05-22] MEDS: Acetaminophen 500 MG TAB PO SCH (15:02)
[2023-05-22] MEDS: Vancomycin 1 GM in Premix 1 BAG IVPB SCH (15:05)
[2023-05-22] MEDS ORDERED: HumaLOG 300 UNITS/3 ML VIAL SC PRN (17:04)
[2023-05-22] MEDS: Insulin Glargine 30 UNITS/0.3 ML VIAL SC SCH (18:17)
[2023-05-22] MEDS: Gabapentin 300 MG CAP PO SCH (21:29)
[2023-05-22] MEDS: Tamsulosin HCl 0.4 MG CAP PO SCH (21:30)
[2023-05-22 21:55] LABS: Sodium 123 mmol/L (136-145)
[2023-05-23 01:37] LABS: Bacteria/HPF None Seen HPF (None Seen); Bilirubin 1+ (Negative); Blood, Urine 1+ (Negative); CAUTI Indications for Culture Dysuria,urgency,freq; Clarity Clear (Clear); Glucose, Urine (Dipstick) Greater than 1000 mg/dL (Negative); Ketone, Urine Trace mg/dL (Negative); Leukocyte Negative Leu/uL (Negative); Nitrite Negative (Negative); Protein, Urine (Dipstick) 100 mg/dL (Neg-Trace); RBC/HPF 0-3 HPF (0-3); Squamous Epithelial 0-3 HPF (0-3); Urobilinogen 6 mg/dL (Less than 2)
[2023-05-23 01:38] LABS: Urine Culture Reflex No No
[2023-05-23 05:29] LABS: #Basophils 0.1 thou/uL (0.0-0.2); #Eosinphils 0.3 thou/uL (0.0-0.7); #Neutrophils 9.3 thou/uL (1.40-6.50); %Basophils 0.4 % (0.0-1.0); %Lymphocytes 14.5 % (21.0-51.0); %Monocytes 7.6 % (0.0-10.0); %Neutrophils 70.8 % (42.0-75.0); Hematocrit 28.1 % (42.0-52.0); Hemoglobin 9.2 g/dL (14.0-18.0); Mean Corpuscular HGB CONC 32.7 g/dL (32.0-36.0); Mean Corpuscular Hemoglobin 27.5 pg (27.0-31.0); Mean Corpuscular Volume 84.1 fl (78.0-98.0); Mean Platelet Volume 11.8 fL (7.4-10.4); Platelet Count 272 10x3/uL (130-400); RBC Distribution Width 12.7 % (11.5-14.5); Red Blood Cell (RBC) Count 3.34 mill/uL (4.70-6.10); White Blood Cell (WBC) Count 13.1 10x3/uL (4.8-10.8)
[2023-05-23 05:50] LABS: Anion Gap 11 mmol/L (10-20); BUN (Urea Nitrogen) 29 mg/dL (8.9-20.6); Calc. Creatinine Clearance 244 mL/min (70-130); Calcium 8.3 mg/dL (7.8-10.44); Carbon Dioxide 24 mmol/L (22-29); Chloride 97 mmol/L (98-107); Estimated GFR 108; Potassium 3.8 mmol/L (3.5-5.1); Sodium 128 mmol/L (136-145)
[2023-05-23 05:54] LABS: Critical Call Chemistry NUR.AB6@0554; Glucose 417 mg/dL (70-105)
[2023-05-23] MEDS: Furosemide 40 MG TAB PO SCH (08:47)
[2023-05-23] MEDS: Potassium Chloride 20 MEQ TAB PO SCH (08:48)
[2023-05-23] MEDS: Escitalopram Oxalate 10 mg Tablet PO SCH (08:48)
[2023-05-23] MEDS: Insulin Glargine 30 UNITS/0.3 ML VIAL SC SCH (08:48)
[2023-05-23] MEDS: Atorvastatin Calcium 40 MG TAB PO SCH (08:48)
[2023-05-23] MEDS: HumaLOG 300 UNITS/3 ML VIAL SC PRN (09:36)
[2023-05-23] MEDS: cefTRIAXone\\ROCEPHIN 2 GM in Sodium Chloride 0.9% 100 ML IVPB SCH (12:41)
[2023-05-23 13:10] LABS: Vancomycin, Trough 21.5 ug/mL
[2023-05-23] MEDS: Fentanyl CADD 100 ML IVPB SCH (14:54)
[2023-05-23] MEDS: Vancomycin HCl 750 MG in Sodium Chloride 0.9% 250 ML 250 ML IVPB SCH (17:29)
[2023-05-24 04:13] LABS: Hematocrit 25.6 % (42.0-52.0); Hemoglobin 8.3 g/dL (14.0-18.0); Manual Diff?? YES; Mean Corpuscular HGB CONC 32.4 g/dL (32.0-36.0); Mean Corpuscular Volume 86.5 fl (78.0-98.0); Mean Platelet Volume 11.5 fL (7.4-10.4); Platelet Count 361 10x3/uL (130-400); RBC Distribution Width 12.9 % (11.5-14.5); Red Blood Cell (RBC) Count 2.96 mill/uL (4.70-6.10); White Blood Cell (WBC) Count 14.8 10x3/uL (4.8-10.8)
[2023-05-24 04:59] LABS: Anion Gap 11 mmol/L (10-20); BUN (Urea Nitrogen) 21 mg/dL (8.9-20.6); Calc. Creatinine Clearance 288 mL/min (70-130); Calcium 7.7 mg/dL (7.8-10.44); Carbon Dioxide 25 mmol/L (22-29); Chloride 100 mmol/L (98-107); Estimated GFR 117; Glucose 276 mg/dL (70-105); Sodium 132 mmol/L (136-145)
[2023-05-24 05:03] LABS: Delete Auto Diff?? YES
[2023-05-24] MEDS: glipiZIDE 5 MG TAB PO SCH (07:35)
[2023-05-24 08:11] LABS: Anisocytosis MARKED = >30 cells HPF (0-5); Band 3 % (5-11); CellaVision Operator ID LAB.KW3; Eosinophils 3 % (0-10); Lymphocytes 12 % (21-51); Monocytes 6 % (0-10); Neutrophil 76 % (42-75); Platelet Adequacy Comment Platelets Normal; Poikilocytosis MARKED = >30 cells HPF (0-5); Polychromasia MARKED = >4 cells HPF (0-2); Total Cell Count 99
[2023-05-24] MEDS ORDERED: PROPOFOL 20 ML ONE (11:55)
[2023-05-24] MEDS ORDERED: fentaNYL PF 100 MCG/2 ML SYRINGE ONE (11:55)
[2023-05-24] MEDS ORDERED: Lidocaine 2% PF 5 ML VIAL ONE (11:56)
[2023-05-24] MEDS ORDERED: Dexamethasone 4 mg/ml Vial ONE (11:57)
[2023-05-24] MEDS ORDERED: Ondansetron PF 4 MG/2 ML Vial ONE ×2 (11:57→13:19)
[2023-05-24] MEDS ORDERED: fentaNYL 50 mcg/mL 1 mL Vial ONE (13:16)
[2023-05-24] MEDS ORDERED: Fentanyl 250 MCG/5 ML VIAL ONE (13:56)
[2023-05-24] MEDS ORDERED: Promethazine HCl 25 MG/ML VIAL ONE (13:56)
[2023-05-24] MEDS ORDERED: Ondansetron HCl/PF 4 MG/2 ML Vial IVP PRN (14:21)
[2023-05-24] MEDS ORDERED: Promethazine HCl 25 MG/ML VIAL IM PRN (14:21)
[2023-05-24] MEDS ORDERED: Non-Formulary Medication 1 EACH PO PRN (15:14)
[2023-05-24 17:50] LABS: Vancomycin, Trough 12.5 ug/mL
[2023-05-24] MEDS: FLU VACC QS2023-24(6MOS UP)/PF 60 MCG/0.5 ML SYRINGE IM ONE (18:40)
[2023-05-25 06:23] LABS: Hematocrit 29.5 % (42.0-52.0); Hemoglobin 9.1 g/dL (14.0-18.0); Manual Diff?? YES; Mean Corpuscular HGB CONC 30.8 g/dL (32.0-36.0); Mean Corpuscular Hemoglobin 28.6 pg (27.0-31.0); Mean Corpuscular Volume 92.8 fl (78.0-98.0); Mean Platelet Volume 12.6 fL (7.4-10.4); Platelet Count 288 10x3/uL (130-400); RBC Distribution Width 13.4 % (11.5-14.5); Red Blood Cell (RBC) Count 3.18 mill/uL (4.70-6.10); White Blood Cell (WBC) Count 13.3 10x3/uL (4.8-10.8)
[2023-05-25 06:28] LABS: Delete Auto Diff?? YES
[2023-05-25 06:52] LABS: Anion Gap 12 mmol/L (10-20); BUN (Urea Nitrogen) 15 mg/dL (8.9-20.6); Calc. Creatinine Clearance 307 mL/min (70-130); Calcium 7.6 mg/dL (7.8-10.44); Carbon Dioxide 21 mmol/L (22-29); Chloride 104 mmol/L (98-107); Estimated GFR 120; Glucose 282 mg/dL (70-105); Potassium 4.8 mmol/L (3.5-5.1); Sodium 132 mmol/L (136-145)
[2023-05-25 07:02] LABS: CellaVision Operator ID lab.abc; Hypochromia SLIGHT = 6-15 cells HPF (0-5); Large Platelets 5.1 % (0-5); Lymphocytes 7 % (21-51); Monocytes 9 % (0-10); Neutrophil 83 % (42-75); Platelet Adequacy Comment Platelets Normal; Polychromasia SLIGHT = 2-3 cells HPF (0-2); Smudge Cells 12.1 %; Total Cell Count 99
[2023-05-25] MEDS: Insulin Glargine 30 UNITS/0.3 ML VIAL SC SCH (21:00)
[2023-05-26 05:08] LABS: #Eosinphils 0.2 thou/uL (0.0-0.7); #Monocytes 0.6 thou/uL (0.11-0.59); #Neutrophils 6.9 thou/uL (1.40-6.50); %Basophils 0.4 % (0.0-1.0); %Eosinophils 1.7 % (0.0-10.0); %Lymphocytes 21.4 % (21.0-51.0); %Monocytes 5.8 % (0.0-10.0); Hematocrit 24.8 % (42.0-52.0); Hemoglobin 7.7 g/dL (14.0-18.0); Mean Corpuscular Hemoglobin 27.6 pg (27.0-31.0); Mean Platelet Volume 10.5 fL (7.4-10.4); Platelet Count 371 10x3/uL (130-400); RBC Distribution Width 13.2 % (11.5-14.5); Red Blood Cell (RBC) Count 2.79 mill/uL (4.70-6.10); White Blood Cell (WBC) Count 10.4 10x3/uL (4.8-10.8)
[2023-05-26 05:37] LABS: Anion Gap 9 mmol/L (10-20); BUN (Urea Nitrogen) 16 mg/dL (8.9-20.6); Calc. Creatinine Clearance 345 mL/min (70-130); Calcium 7.3 mg/dL (7.8-10.44); Carbon Dioxide 24 mmol/L (22-29); Chloride 105 mmol/L (98-107); Estimated GFR 124; Glucose 187 mg/dL (70-105); Potassium 4.1 mmol/L (3.5-5.1); Sodium 134 mmol/L (136-145)
[2023-05-26 05:49] LABS: Mean Corpuscular Volume 88.9 fl (78.0-98.0)
[2023-05-26] MEDS ORDERED: VANCOMYCIN IVPB PRN (08:10)
[2023-05-26] MEDS: Vancomycin (BATCH) 1.25 GM in Premix 1 BAG IVPB SCH (10:21)
[2023-05-26 17:33] LABS: Hematocrit 25.2 % (42.0-52.0); Hemoglobin 7.9 g/dL (14.0-18.0)
[2023-05-26] MEDS: Insulin Glargine 30 UNITS/0.3 ML VIAL SC SCH (20:15)
[2023-05-27 04:05] LABS: #Eosinphils 0.2 thou/uL (0.0-0.7); #Monocytes 0.6 thou/uL (0.11-0.59); %Basophils 0.3 % (0.0-1.0); %Eosinophils 1.8 % (0.0-10.0); %Monocytes 5.1 % (0.0-10.0); %Neutrophils 71.8 % (42.0-75.0); Hematocrit 23.8 % (42.0-52.0); Hemoglobin 7.3 g/dL (14.0-18.0); Mean Corpuscular HGB CONC 30.7 g/dL (32.0-36.0); Mean Corpuscular Hemoglobin 27.4 pg (27.0-31.0); Mean Corpuscular Volume 89.5 fl (78.0-98.0); Mean Platelet Volume 10.1 fL (7.4-10.4); Platelet Count 432 10x3/uL (130-400); RBC Distribution Width 13.4 % (11.5-14.5); Red Blood Cell (RBC) Count 2.66 mill/uL (4.70-6.10); White Blood Cell (WBC) Count 11.1 10x3/uL (4.8-10.8)
[2023-05-27 04:24] LABS: Anion Gap 12 mmol/L (10-20); BUN (Urea Nitrogen) 12 mg/dL (8.9-20.6); Calc. Creatinine Clearance 355 mL/min (70-130); Calcium 7.1 mg/dL (7.8-10.44); Carbon Dioxide 25 mmol/L (22-29); Chloride 105 mmol/L (98-107); Estimated GFR 125; Glucose 128 mg/dL (70-105); Potassium 4.4 mmol/L (3.5-5.1); Sodium 138 mmol/L (136-145)
[2023-05-27] MEDS: Polyethylene Glycol 3350 17 GM Packet PO SCH (06:26)
[2023-05-27] MEDS: oxyCODONE 5 MG TAB PO SCH (15:43)
[2023-05-27] MEDS: Gabapentin 300 MG CAP PO SCH (21:27)
[2023-05-28 04:26] LABS: #Eosinphils 0.2 thou/uL (0.0-0.7); #Monocytes 0.5 thou/uL (0.11-0.59); %Basophils 0.1 % (0.0-1.0); %Eosinophils 1.9 % (0.0-10.0); %Monocytes 5.5 % (0.0-10.0); %Neutrophils 70.9 % (42.0-75.0); Hematocrit 23.5 % (42.0-52.0); Hemoglobin 7.2 g/dL (14.0-18.0); Mean Corpuscular HGB CONC 30.6 g/dL (32.0-36.0); Mean Corpuscular Hemoglobin 27.4 pg (27.0-31.0); Mean Corpuscular Volume 89.4 fl (78.0-98.0); Platelet Count 435 10x3/uL (130-400); RBC Distribution Width 13.4 % (11.5-14.5); Red Blood Cell (RBC) Count 2.63 mill/uL (4.70-6.10); White Blood Cell (WBC) Count 8.5 10x3/uL (4.8-10.8)
[2023-05-28 04:55] LABS: Vancomycin, Random 15.6 ug/mL (See Comment)
[2023-05-28 04:56] LABS: Anion Gap 8 mmol/L (10-20); BUN (Urea Nitrogen) 11 mg/dL (8.9-20.6); Calc. Creatinine Clearance 325 mL/min (70-130); Calcium 7.4 mg/dL (7.8-10.44); Carbon Dioxide 27 mmol/L (22-29); Chloride 106 mmol/L (98-107); Estimated GFR 122; Glucose 130 mg/dL (70-105); Potassium 4.3 mmol/L (3.5-5.1); Sodium 137 mmol/L (136-145)
[2023-05-28] MEDS ORDERED: Sodium Bicarbonate 2.5 MEQ/5 ML SDV ONE (08:00)
[2023-05-28] MEDS ORDERED: Lidocaine 1% PF 5 ML VIAL ONE (08:00)
[2023-05-28] MEDS: oxyCODONE 5 MG TAB PO PRN (13:45)
[2023-05-28] MEDS: Vancomycin (BATCH) 1.5 GM in Premix 1 BAG IVPB SCH (21:12)
[2023-05-29 04:02] LABS: Hematocrit 22.5 % (42.0-52.0); Hemoglobin 6.9 g/dL (14.0-18.0)
[2023-05-29 04:21] LABS: Vancomycin, Random 19.4 ug/mL (See Comment)
[2023-05-29 04:26] LABS: Anion Gap 10 mmol/L (10-20); BUN (Urea Nitrogen) 10 mg/dL (8.9-20.6); Calc. Creatinine Clearance 361 mL/min (70-130); Calcium 7.2 mg/dL (7.8-10.44); Carbon Dioxide 27 mmol/L (22-29); Chloride 103 mmol/L (98-107); Estimated GFR 126; Glucose 110 mg/dL (70-105); Potassium 4.4 mmol/L (3.5-5.1); Sodium 136 mmol/L (136-145)
[2023-05-30 06:50] LABS: Hematocrit 24.5 % (42.0-52.0); Hemoglobin 7.7 g/dL (14.0-18.0); Platelet Count 472 10x3/uL (130-400)
[2023-05-30 07:26] LABS: Anion Gap 12 mmol/L (10-20); BUN (Urea Nitrogen) 10 mg/dL (8.9-20.6); Calc. Creatinine Clearance 334 mL/min (70-130); Calcium 8.1 mg/dL (7.8-10.44); Carbon Dioxide 27 mmol/L (22-29); Chloride 102 mmol/L (98-107); Estimated GFR 123; Glucose 74 mg/dL (70-105); Potassium 4.5 mmol/L (3.5-5.1); Sodium 136 mmol/L (136-145)
[2023-05-31 06:07] LABS: Hematocrit 25.7 % (42.0-52.0); Hemoglobin 8.3 g/dL (14.0-18.0)
[2023-05-31 06:34] LABS: Vancomycin, Random 18.7 ug/mL (See Comment)
[2023-05-31 08:27] VITALS: BP 104/56; TEMP 98.5
== END 2023-05-31 13:38 | DRG 854 ==
LOC: ERS 11:15 → ERHOLD 13:21 → 2NO 16:22 → SURG B 05-22 19:54
PROVIDERS: ADMIT Internal Medicine; ATTEND Family Medicine
PROC: 3E03329 Introduction of Other Anti-infective into Peripheral Vein, Percutaneous Approach (ICD-10-PCS; 2023-05-21)
PROC: 0Y6H0Z2 Detachment at Right Lower Leg, Mid, Open Approach (ICD-10-PCS; principal; 2023-05-22)
PROC: 30233J1 Transfusion of Nonautologous Serum Albumin into Peripheral Vein, Percutaneous Approach (ICD-10-PCS; 2023-05-22)
PROC: 02HV33Z Insertion of Infusion Device into Superior Vena Cava, Percutaneous Approach (ICD-10-PCS; 2023-05-28)
PROC: B5181ZA Fluoroscopy of Superior Vena Cava using Low Osmolar Contrast, Guidance (ICD-10-PCS; 2023-05-28)
DX: A41.9 Sepsis, unspecified organism (principal); D62 Acute posthemorrhagic anemia; M60.003 Infective myositis, unspecified right leg; M86.9 Osteomyelitis, unspecified; E11.52 Type 2 diabetes mellitus with diabetic peripheral angiopathy with gangrene; I96 Gangrene, not elsewhere classified; E87.1 Hypo-osmolality and hyponatremia; R45.851 Suicidal ideations; Z68.42 Body mass index [BMI] 45.0-49.9, adult; Z88.1 Allergy status to other antibiotic agents; Z79.4 Long term (current) use of insulin; Z79.899 Other long term (current) drug therapy; E11.69 Type 2 diabetes mellitus with other specified complication; F31.9 Bipolar disorder, unspecified; Z89.512 Acquired absence of left leg below knee; F41.9 Anxiety disorder, unspecified; Z83.3 Family history of diabetes mellitus; E11.40 Type 2 diabetes mellitus with diabetic neuropathy, unspecified; E66.01 Morbid (severe) obesity due to excess calories; E11.51 Type 2 diabetes mellitus with diabetic peripheral angiopathy without gangrene; I10 Essential (primary) hypertension
CPT/HCPCS: 36415; 36416; 36430; 36569; 80048; 80053; 80202; 81001; 82010; 82274; 82565; 82805; 83036; 83605; 83735; 84100; 85014; 85018; 85025; 85049; 86140; 86850; 86900; 86901; 87040; 87070; 87077; 87149; 87186; 87205; 88307; 88311; 93005; 93306; 96365; 96367; C1751; J0696; J1100; J1815; J2001; J2250; J2405; J2543; J2550; J2704; J3010; J3370; J3370-JW; J3475; J3490; J7030; J7050; P9016; P9045; Q9967

== ENCOUNTER 2023-10-01 16:27 | Outpatient (CLI) | payer BC | END 2023-10-01 16:28 | disposition home or self-care (01) | PROVIDERS: ATTEND Family Medicine | DX: Z47.81 Encounter for orthopedic aftercare following surgical amputation (principal); Z89.511 Acquired absence of right leg below knee; Z89.512 Acquired absence of left leg below knee ==